=== PATIENT | male | born 1985 | race African-American/Black ===

== ENCOUNTER 2018-04-06 13:11 | Emergency (ER) | payer MEDICAID, OTHER ==
[~2018-04-06] VITALS: Ht 180.3 cm; Wt 85.0 kg
[2018-04-06 17:19] LABS: CLARITY URINE CLEAR (CLEAR); COLOR URINE YELLOW (YELLOW); KETONES URINE NEGATIVE (NEGATIVE); LEUKOCYTE ESTERASE URINE NEGATIVE (NEGATIVE); NITRITE URINE NEGATIVE (NEGATIVE); OCCULT BLOOD URINE NEGATIVE (NEGATIVE); PROTEIN URINE NEGATIVE (NEGATIVE); SPECIFIC GRAVITY URINE 1.013 (1.005-1.030)
[2018-04-06 17:33] VITALS: BP 127/72
== END 2018-04-06 17:35 | disposition home or self-care (01) ==
LOC: ER 13:48
DX: B34.9 Viral infection, unspecified (principal)
CPT/HCPCS: 82962; 99283